=== PATIENT | female | born 1975 | race Caucasian/White ===

== ENCOUNTER 2021-10-05 14:29 | Emergency (ER) | payer OTHER, SELFPAY ==
[2021-10-05] MEDS: LORazepam 1 MG TABLET PO (15:04)
[2021-10-05 15:08] VITALS: BP 153/94; BP 160/92; PULSE 113; PULSE 115; RESP 20; TEMP 36.8; O2SAT 100; O2SAT 97; BMI 22.8
--- NOTE | 2021-10-05 15:16 | ED_ITS ---
HPI - Psych General Chief Complaint: Psychiatric Symptoms <Kiley Fonseca CNP - Last Filed: 10/05/21 21:07> Stated Complaint: CRISIS EVAL, MANIC EPISODE PER EMS <Kiley Fonseca CNP - Last Filed: 10/05/21 21:07> Time Seen by Provider: 10/05/21 14:44 <Kiley Fonseca CNP - Last Filed: 10/05/21 21:07> Source: patient <Kiley Fonseca CNP - Last Filed: 10/05/21 21:07> Mode of arrival: ambulatory <Kiley Fonseca CNP - Last Filed: 10/05/21 21:07> Limitations: no limitations <Kiley Fonseca CNP - Last Filed: 10/05/21 21:07> History of Present Illness HPI Narrative: The patient presents to the emergency department via EMS requesting respite. She reports that she has been manic for the past few days, and knows that she needs help. She states that she has been taking all her medications as prescribed. Expresses auditory hallucinations. Denies suicidal or homicidal ideations. States the last time she had a bad manic episode was in 2007 and she was admitted inpatient and then sent to respite. Denies possibility of . Denies any recent upper respiratory symptoms, sick contacts, or additional complaints. <Kiley Fonseca CNP - Last Filed: 10/05/21 21:07> Related Data Home Medications: Home Medications Medication Instructions Recorded Confirmed amlodipine 5 mg tablet 1 tab PO DAILY 10/05/21 10/05/21 bupropion HCl 300 mg 24 hr tablet, 1 tab PO DAILY 10/05/21 10/05/21 extended release lamotrigine 100 mg tablet 1 tab PO BID 10/05/21 10/05/21 meloxicam 15 mg tablet 1 tab PO DAILY 10/05/21 10/05/21 <Kiley Fonseca CNP - Last Filed: 10/05/21 21:07> Allergies/Adverse Reactions: Allergies Allergy/AdvReac Type Severity Reaction Status Date / Time levonorgestrel-ethinyl AdvReac Mild COLD Unverified 02/15/20 16:11 estradiol SYMPTOMS [From Seasonale] <Kiley Fonseca CNP - Last Filed: 10/05/21 21:07> Review of Systems Review of Systems: Constitutional : No Fever, No Chills ENT/Mouth : No Ear Pain, No Nasal Congestion, No sore throat Eyes: No Eye Pain, No Swelling, No Redness Cardiovascular : No Chest Pain, No SOB Respiratory : No Cough, No Sputum, No Dyspnea Gastrointestinal : No Nausea, No Vomiting, No Diarrhea, No Hematochezia, No Melena Genitourinary : No Dysuria, No Urinary Frequency, No Hematuria Musculoskeletal : No Myalgias Skin : No Skin Lesions, No rash Neuro : No Weakness, No Numbness, No Paresthesias, No Dizziness, No Headache Psych : positive Anxiety, no Depression, no SI/HI, positive ulices Heme/Lymph: No Lymphadenopathy Endocrine : No Polyuria, No Polydipsia <Kiley Fonseca CNP - Last Filed: 10/05/21 21:07> Yes all other systems are reviewed and are negative <Kiley Fonseca CNP - Last Filed: 10/05/21 21:07> [facility] Past Medical History Attestation statement: The following information was validated with the patient. <Kiley Fonseca CNP - Last Filed: 10/05/21 21:07> Source: old records reviewed <Kiley Fonseca CNP - Last Filed: 10/05/21 21:07> Social History Social History: Social History Advance Directives: No Advance Directives Information Provided: No Guardian: No Patient : No <Kiley Fonseca CNP - Last Filed: 10/05/21 21:07> Physical Exam Vital Signs: Vital Signs: Last Vital Signs Temp 98.9 F 10/05/21 23:40 Pulse 98 10/05/21 23:40 Resp 17 10/05/21 23:40 BP 144/98 H 10/05/21 23:40 Pulse Ox 98 10/05/21 23:40 BMI result Body Mass Index 22.8 Vital signs have been reviewed as normal and appeared to be correct. Blood pressure normal.? Heart rate normal.? Respiration rate normal. Temperature normal.? Oxygen saturation normal. <Kiley Fonseca CNP - Last Filed: 10/05/21 21:07> Vital Signs: Last Vital Signs Temp 98.9 F 10/05/21 23:40 Pulse 98 10/05/21 23:40 Resp 17 10/05/21 23:40 BP 144/98 H 10/05/21 23:40 Pulse Ox 98 10/05/21 23:40 BMI result Body Mass Index 22.8 <Criselda Ling NP - Last Filed: 10/06/21 08:32> Appearance: Alert.?Oriented to person, place and time. Manic. Pressured speech. Tangential thinking. Eyes: Pupils equal, round and reactive to light.? ENT: Pharynx normal.?? Neck: Normal inspection.? Neck supple.?? CVS: Heart sounds normal. Normal heart rate and rhythm.? Pulses normal.?? Respiratory: No respiratory distress.? Lung sounds clear to auscultation bilaterally?? Abdomen: Soft and non-tender. Skin: Skin warm and dry.? Normal skin color.? Extremities: No lower extremity edema.? Neuro: Moves all extremities spontaneously. Sensation intact bilaterally. CN II- XII intact. No focal neuro deficits. Ambulates with normal steady gait. <Kiley Fonseca CNP - Last Filed: 10/05/21 21:07> Course Course Course Narrative: Patient is a 46-year-old female with a past medical history of bipolar disorder. She presents emergency department today and acknowledgement of her current episode of ulices over the past few days. She is expressing that her partner of 11 years and his mother are also bipolar but they are not aware of this or willing to add nausea and patient seems to be very anxious and concerned about this. She is overall well-appearing, well-nourished, well-kempt, no apparent distress, hemodynamically stable. She has pressured speech, tangential thinking, she is able to answer questions appropriately with redirection. She is very restless and appears anxious, discussed management at this time with Ativan 1 mg by mouth, and patient is agreeable. She is requesting assistance for respite. Will obtain basic labs including CBC, BMP, urinalysis, drug of abuse screen, ethanol level, COVID-19 testing for medical clearance. Will consult crisis for evaluation. 15 minute safety checks. <Kiley Fonseca CNP - Last Filed: 10/05/21 21:07> Reevaluation(s) Reevaluation #1: COVID-19 testing is negative. Ethanol level negative. Urine drug of abuse screen negative. Urinalysis without sign of infection. Anxiety has improved after receiving lorazepam. Patient medically cleared for evaluation by crisis. <Kiley Fonseca CNP - Last Filed: 10/05/21 21:07> Time: 16:00 <Kiley Fonseca CNP - Last Filed: 10/05/21 21:07> Reevaluation #2: Patient placed in physician observation at this time she will require additional time to be evaluated by crisis. Patient in no apparent distress. Respirations even, regular, and non-labored. No focal neuro deficits. Vital signs stable. Will continue to monitor. <Kiley Fonseca CNP - Last Filed: 10/05/21 21:07> Time: 19:11 <Kiley Fonseca CNP - Last Filed: 10/05/21 21:07> Reevaluation #3: 0830 on 10/06 -care team to re-evaluate patient today. No complaints per nursing overnight. Vital signs reviewed and stable. Will continue physician observation pending disposition. <Criselda Ling NP - Last Filed: 10/06/21 08:32> MDM - Psych Medical Records Attestation: I reviewed the patient's medical records. <Kiley Fonseca CNP - Last Filed: 10/05/21 21:07> Lab Data Attestation: I reviewed the patient's lab results. <Kiley Fonseca CNP - Last Filed: 10/05/21 21:07> Result diagrams: : 10/05/21 16:07 10/05/21 16:07 <Kiley Fonseca CNP - Last Filed: 10/05/21 21:07> Labs: Lab Results 10/05/21 10/05/21 10/05/21 Range/Units 15:56 16:07 16:07 WBC 10.5 (4.8-10.8) X10*3/uL RBC 4.10 L (4.20-5.50) X10*6/uL Hgb 12.4 (12.0-16.0) g/dl Hct 36.4 L (37.0-47.0) % MCV 88.8 (80.0-98.0) fL MCH 30.2 (27.0-33.0) pg MCHC 34.1 (31.0-35.0) g/dl RDW 12.3 (11.0-16.0) % Plt Count 322 (160-400) X10*3/uL MPV 9.2 L (9.4-12.3) fL Immature Gran % (Auto) 0.4 (0.0-0.4) % Neut % (Auto) 86.2 H (45-73) % Lymph % (Auto) 8.7 L (20-40) % [place] % (Auto) 4.4 (2-11) % Eos % (Auto) 0.0 (0-4) % Baso % (Auto) 0.3 (0-2) % Lymph # (Auto) 0.9 L (1.2-4.9) X10*3/uL [place] # (Auto) 0.5 (0.1-1.2) X10*3/uL Eos # (Auto) 0.0 (0.0-0.4) X10*3/uL Baso # (Auto) 0.0 (0.0-0.2) X10*3/uL Abs Immat Gran (auto) 0.04 H (0.00-0.03) X10*3/uL Absolute Neuts (auto) 9.1 H (2.0-8.3) x10*3/uL Absolute Nucleated RBC 0.000 (0.0-0.012) X10*3/uL Nucleated RBC % (auto) 0.0 (0.0-0.2) /100WBC Sodium 140 (135-145) mmol/L Potassium 3.8 (3.3-5.1) mmol/L Chloride 110 H (96-108) mmol/L Carbon Dioxide 21 L (22-29) mmol/L Anion Gap 13 (12-20) BUN 12 (9-16) mg/dL Creatinine 1.02 (0.5-1.4) mg/dL Estim Creat Clear Calc 51.4 Estimated GFR 58 Random Glucose 140 H (60-115) mg/dL Calcium 9.2 (8.4-10.2) mg/dL Urine Color Urine Appearance Urine pH (5.0-8.0) Ur Specific [place] (1.005-1.025) Urine Protein (NEG-TRACE) MG/DL Urine Glucose (UA) (NEG) MG/DL Urine Ketones (NEG) MG/DL Urine Blood (NEG) Urine Nitrite (NEG) Ur Leukocyte Esterase (NEG) Urine Opiates Screen (Not Detect) Urine Fentanyl Screen (Not Detect) Ur Barbiturates Screen (Not Detect) Ur Phencyclidine Scrn (Not Detect) Ur Amphetamines Screen (Not Detect) U Benzodiazepines Scrn (Not Detect) Urine Cocaine Screen (Not Detect) U Marijuana (THC) Screen (Not Detect) Ethyl Alcohol mg/dL COVID-19 (DANAY) Negative (Negative) COVID-19 Clin Com See Note 10/05/21 10/05/21 10/05/21 Range/Units 16:07 17:53 17:53 WBC (4.8-10.8) X10*3/uL RBC (4.20-5.50) X10*6/uL Hgb (12.0-16.0) g/dl Hct (37.0-47.0) % MCV (80.0-98.0) fL MCH (27.0-33.0) pg MCHC (31.0-35.0) g/dl RDW (11.0-16.0) % Plt Count (160-400) X10*3/uL MPV (9.4-12.3) fL Immature Gran % (Auto) (0.0-0.4) % Neut % (Auto) (45-73) % Lymph % (Auto) (20-40) % [place] % (Auto) (2-11) % Eos % (Auto) (0-4) % Baso % (Auto) (0-2) % Lymph # (Auto) (1.2-4.9) X10*3/uL [place] # (Auto) (0.1-1.2) X10*3/uL Eos # (Auto) (0.0-0.4) X10*3/uL Baso # (Auto) (0.0-0.2) X10*3/uL Abs Immat Gran (auto) (0.00-0.03) X10*3/uL Absolute Neuts (auto) (2.0-8.3) x10*3/uL Absolute Nucleated RBC (0.0-0.012) X10*3/uL Nucleated RBC % (auto) (0.0-0.2) /100WBC Sodium (135-145) mmol/L Potassium (3.3-5.1) mmol/L Chloride (96-108) mmol/L Carbon Dioxide (22-29) mmol/L Anion Gap (12-20) BUN (9-16) mg/dL Creatinine (0.5-1.4) mg/dL Estim Creat Clear Calc Estimated GFR Random Glucose (60-115) mg/dL Calcium (8.4-10.2) mg/dL Urine Color YELLOW Urine Appearance CLEAR Urine pH 7.0 (5.0-8.0) Ur Specific [place] 1.020 (1.005-1.025) Urine Protein NEG (NEG-TRACE) MG/DL Urine Glucose (UA) NEG (NEG) MG/DL Urine Ketones 15 (NEG) MG/DL Urine Blood NEG (NEG) Urine Nitrite NEG (NEG) Ur Leukocyte Esterase NEG (NEG) Urine Opiates Screen Not Detected (Not Detect) Urine Fentanyl Screen Not Detected (Not Detect) Ur Barbiturates Screen Not Detected (Not Detect) Ur Phencyclidine Scrn Not Detected (Not Detect) Ur Amphetamines Screen Not Detected (Not Detect) U Benzodiazepines Scrn Not Detected (Not Detect) Urine Cocaine Screen Not Detected (Not Detect) U Marijuana (THC) Screen Not Detected (Not Detect) Ethyl Alcohol < 10 mg/dL COVID-19 (DANAY) (Negative) COVID-19 Clin Com <Kiley Fonseca, CELL TENDER HELPER - Last Filed: 10/05/21 21:07> Lab Results 10/05/21 10/05/21 10/05/21 Range/Units 15:56 16:07 16:07 WBC 10.5 (4.8-10.8) X10*3/uL RBC 4.10 L (4.20-5.50) X10*6/uL Hgb 12.4 (12.0-16.0) g/dl Hct 36.4 L (37.0-47.0) % MCV 88.8 (80.0-98.0) fL MCH 30.2 (27.0-33.0) pg MCHC 34.1 (31.0-35.0) g/dl RDW 12.3 (11.0-16.0) % Plt Count 322 (160-400) X10*3/uL MPV 9.2 L (9.4-12.3) fL Immature Gran % (Auto) 0.4 (0.0-0.4) % Neut % (Auto) 86.2 H (45-73) % Lymph % (Auto) 8.7 L (20-40) % [place] % (Auto) 4.4 (2-11) % Eos % (Auto) 0.0 (0-4) % Baso % (Auto) 0.3 (0-2) % Lymph # (Auto) 0.9 L (1.2-4.9) X10*3/uL [place] # (Auto) 0.5 (0.1-1.2) X10*3/uL Eos # (Auto) 0.0 (0.0-0.4) X10*3/uL Baso # (Auto) 0.0 (0.0-0.2) X10*3/uL Abs Immat Gran (auto) 0.04 H (0.00-0.03) X10*3/uL Absolute Neuts (auto) 9.1 H (2.0-8.3) x10*3/uL Absolute Nucleated RBC 0.000 (0.0-0.012) X10*3/uL Nucleated RBC % (auto) 0.0 (0.0-0.2) /100WBC Sodium 140 (135-145) mmol/L Potassium 3.8 (3.3-5.1) mmol/L Chloride 110 H (96-108) mmol/L Carbon Dioxide 21 L (22-29) mmol/L Anion Gap 13 (12-20) BUN 12 (9-16) mg/dL Creatinine 1.02 (0.5-1.4) mg/dL Estim Creat Clear Calc 51.4 Estimated GFR 58 Random Glucose 140 H (60-115) mg/dL Calcium 9.2 (8.4-10.2) mg/dL Urine Color Urine Appearance Urine pH (5.0-8.0) Ur Specific [place] (1.005-1.025) Urine Protein (NEG-TRACE) MG/DL Urine Glucose (UA) (NEG) MG/DL Urine Ketones (NEG) MG/DL Urine Blood (NEG) Urine Nitrite (NEG) Ur Leukocyte Esterase (NEG) Urine Opiates Screen (Not Detect) Urine Fentanyl Screen (Not Detect) Ur Barbiturates Screen (Not Detect) Ur Phencyclidine Scrn (Not Detect) Ur Amphetamines Screen (Not Detect) U Benzodiazepines Scrn (Not Detect) Urine Cocaine Screen (Not Detect) U Marijuana (THC) Screen (Not Detect) Ethyl Alcohol mg/dL COVID-19 (DANAY) Negative (Negative) COVID-19 Clin Com See Note 10/05/21 10/05/21 10/05/21 Range/Units 16:07 17:53 17:53 WBC (4.8-10.8) X10*3/uL RBC (4.20-5.50) X10*6/uL Hgb (12.0-16.0) g/dl Hct (37.0-47.0) % MCV (80.0-98.0) fL MCH (27.0-33.0) pg MCHC (31.0-35.0) g/dl RDW (11.0-16.0) % Plt Count (160-400) X10*3/uL MPV (9.4-12.3) fL Immature Gran % (Auto) (0.0-0.4) % Neut % (Auto) (45-73) % Lymph % (Auto) (20-40) % [place] % (Auto) (2-11) % Eos % (Auto) (0-4) % Baso % (Auto) (0-2) % Lymph # (Auto) (1.2-4.9) X10*3/uL [place] # (Auto) (0.1-1.2) X10*3/uL Eos # (Auto) (0.0-0.4) X10*3/uL Baso # (Auto) (0.0-0.2) X10*3/uL Abs Immat Gran (auto) (0.00-0.03) X10*3/uL Absolute Neuts (auto) (2.0-8.3) x10*3/uL Absolute Nucleated RBC (0.0-0.012) X10*3/uL Nucleated RBC % (auto) (0.0-0.2) /100WBC Sodium (135-145) mmol/L Potassium (3.3-5.1) mmol/L Chloride (96-108) mmol/L Carbon Dioxide (22-29) mmol/L Anion Gap (12-20) BUN (9-16) mg/dL Creatinine (0.5-1.4) mg/dL Estim Creat Clear Calc Estimated GFR Random Glucose (60-115) mg/dL Calcium (8.4-10.2) mg/dL Urine Color YELLOW Urine Appearance CLEAR Urine pH 7.0 (5.0-8.0) Ur Specific [place] 1.020 (1.005-1.025) Urine Protein NEG (NEG-TRACE) MG/DL Urine Glucose (UA) NEG (NEG) MG/DL Urine Ketones 15 (NEG) MG/DL Urine Blood NEG (NEG) Urine Nitrite NEG (NEG) Ur Leukocyte Esterase NEG (NEG) Urine Opiates Screen Not Detected (Not Detect) Urine Fentanyl Screen Not Detected (Not Detect) Ur Barbiturates Screen Not Detected (Not Detect) Ur Phencyclidine Scrn Not Detected (Not Detect) Ur Amphetamines Screen Not Detected (Not Detect) U Benzodiazepines Scrn Not Detected (Not Detect) Urine Cocaine Screen Not Detected (Not Detect) U Marijuana (THC) Screen Not Detected (Not Detect) Ethyl Alcohol < 10 mg/dL COVID-19 (DANAY) (Negative) COVID-19 Clin Com <Criselda Ling NP - Last Filed: 10/06/21 08:32> Discharge Plan Discharge Clinical Impression: Bipolar disorder <Kiley Fonseca CNP - Last Filed: 10/05/21 21:07> Patient Disposition: Still a Patient <Kiley Fonseca CNP - Last Filed: 10/05/21 21:07> Prescriptions: No Action meloxicam 15 mg tablet 1 tab PO DAILY 0RF amlodipine 5 mg tablet 1 tab PO DAILY 0RF lamotrigine 100 mg tablet 1 tab PO BID 0RF bupropion HCl 300 mg tablet extended release 24 hr 1 tab PO DAILY 0RF <Kiley Fonseca CNP - Last Filed: 10/05/21 21:07>
[2021-10-05 16:12] LABS: MANUAL DIFF FLAG NO
[2021-10-05 16:14] LABS: Basophils Percent Auto 0.3 % (0-2); Hematocrit 36.4 % (37.0-47.0); Hemoglobin 12.4 g/dl (12.0-16.0); Imm Gran Abs Auto 0.04 X10*3/uL (0.00-0.03); Imm Gran Pct Auto 0.4 % (0.0-0.4); Lymphocytes Absolute Auto 0.9 X10*3/uL (1.2-4.9); Lymphocytes Percent Auto 8.7 % (20-40); Mean Corpuscular HGB Conc 34.1 g/dl (31.0-35.0); Mean Corpuscular Hemoglobin 30.2 pg (27.0-33.0); Mean Corpuscular Volume 88.8 fL (80.0-98.0); Mean Platelet Volume 9.2 fL (9.4-12.3); Monocytes Absolute Auto 0.5 X10*3/uL (0.1-1.2); Monocytes Percent Auto 4.4 % (2-11); Neutrophils Absolute Auto 9.1 x10*3/uL (2.0-8.3); Neutrophils Percent Auto 86.2 % (45-73); Platelet Count 322 X10*3/uL (160-400); Red Cell Distribution Width 12.3 % (11.0-16.0); White Blood Count 10.5 X10*3/uL (4.8-10.8)
[2021-10-05 16:26] LABS: Ethanol < 10 mg/dL
[2021-10-05 16:27] LABS: Anion Gap 13 (12-20); Blood Urea Nitrogen 12 mg/dL (9-16); Calcium 9.2 mg/dL (8.4-10.2); Carbon Dioxide 21 mmol/L (22-29); Chloride 110 mmol/L (96-108); Creatinine Clr Calc Pharmacy 51.4; Estimated Glomerular Filt Rate 58; Glucose Random 140 mg/dL (60-115); Potassium 3.8 mmol/L (3.3-5.1); Sodium 140 mmol/L (135-145)
[2021-10-05 16:28] LABS: COVID-19 Test Negative (Negative); IDNOW Serial# 16C4AD1C
[2021-10-05 18:01] LABS: Appearance Urine CLEAR; Color Urine YELLOW; Glucose Urine UA NEG (NEG); Leukocyte Esterase Urine NEG (NEG); Nitrite Urine NEG (NEG); Urine Blood NEG (NEG); Urine Ketones 15 MG/DL (NEG); Urine Protein NEG (NEG-TRACE)
[2021-10-05 18:15] LABS: Amphetamine Screen Urine Not Detected (Not Detect); Barbiturates, Urine Not Detected (Not Detect); Benzodiazepines Screen Urine Not Detected (Not Detect); Cannabinoid Screen Urine Not Detected (Not Detect); Cocaine Screen Urine Not Detected (Not Detect); Fentanyl, urine Not Detected (Not Detect); Opiate Screen Urine Not Detected (Not Detect); Phencyclidine Screen Urine Not Detected (Not Detect)
[2021-10-05 19:24] VITALS: BP 121/81; PULSE 106; RESP 20; TEMP 37.3; O2SAT 98
[2021-10-05] MEDS: lamoTRIgine 100 MG TABLET PO (21:45)
[2021-10-05 23:40] VITALS: BP 144/98; PULSE 98; RESP 17; TEMP 37.2; O2SAT 98
--- NOTE | 2021-10-06 06:21 | PC.NURSE ---
Patient slept most part of the night, up out of room for x 2 for bathroom use and for drinks, behavior calm, coherent, and non concerning at this time, awaiting care team assessment in the morning, patient is seeking partial hospitalization program, VSS, will continue to monitor.
--- NOTE | 2021-10-06 07:04 | PC.NURSE ---
patient appears to remain asleep at present respirations are even and unlabored patient appears in no distress
[2021-10-06] MEDS: amLODIPine Besylate 5 MG TABLET PO (08:39)
[2021-10-06] MEDS: buPROPion HCl XL 300 MG TAB.ER.24H PO (08:39)
[2021-10-06] MEDS: lamoTRIgine 100 MG TABLET PO (08:39)
[2021-10-06 08:40] VITALS: BP 132/93; PULSE 102; RESP 16; TEMP 37.1; O2SAT 97
--- NOTE | 2021-10-06 12:26 | PM.PSYCN ---
History of Present Illness Date of Service: 10/06/2021 Chief Complaint: CRISIS EVAL, MANIC EPISODE PER EMS Reason for Consult: ulices Requesting physician: Criselda Ling Discussed with referring provider: Yes Sources of Information: patient interviewed, chart reviewed and crisis/core team assessment reviewed HPI Narrative: Ms. Noble is a 46 year-old woman with hx of Bipolar disorder type 1. She was brought via EMS to [facility] ED due to increase paranoia and irritability towards family members, decrease need for sleep, hyperverbal, flight of ideas and disorganized. Pt last inpatient psychiatric admission was back in 2007 on m5 for ulices and apparently has been doing fine until few weeks ago. In the ED, utox was negative. In the ED, pt presents with increased insight. She reports she was given ativan which was helpful as she was able to sleep. She reports some paranoia towards family, but states this could have been as I was not sleeping. She notes she had ulices talking too much more irritable, guarded, decreased need for sleep. She denies VH/AH. She reports her PCP has been prescribing combination of lamictal and wellbutrin. she denies SI/HI. She is in agreement to step down to PHP- per partner of 10 years in agreement to take pt home to continue OP psych tx. Past Psychiatric History: Inpatient: 2007 M5 ulices OP: none, PCP currently prescribing for her. Suicide attempts: denies Past med trials: wellbutrin, lamictal. Medical Evaluation Reviewed: Yes Diagnostics Vital Signs (24Hr): Vital Signs - 24 hr 10/05/21 15:08 10/05/21 19:24 10/05/21 23:40 Temperature 98.3 F 99.1 F 98.9 F Pulse Rate 113 H 106 H 98 Respiratory Rate 20 20 17 Blood Pressure 153/94 H 121/81 144/98 H Pulse Oximetry 97 98 98 10/06/21 08:40 Temperature 98.7 F Pulse Rate 102 H Respiratory Rate 16 Blood Pressure 132/93 H Pulse Oximetry 97 BMI result Body Mass Index 22.8 Labs Results: 10/05/21 16:07 10/05/21 16:07 Labs: Laboratory Results - last 48 hr 10/05/21 10/05/21 10/05/21 15:56 16:07 16:07 WBC 10.5 RBC 4.10 L Hgb 12.4 Hct 36.4 L MCV 88.8 MCH 30.2 MCHC 34.1 RDW 12.3 Plt Count 322 MPV 9.2 L Immature Gran % (Auto) 0.4 Neut % (Auto) 86.2 H Lymph % (Auto) 8.7 L [place] % (Auto) 4.4 Eos % (Auto) 0.0 Baso % (Auto) 0.3 Lymph # (Auto) 0.9 L [place] # (Auto) 0.5 Eos # (Auto) 0.0 Baso # (Auto) 0.0 Abs Immat Gran (auto) 0.04 H Absolute Neuts (auto) 9.1 H Absolute Nucleated RBC 0.000 Nucleated RBC % (auto) 0.0 Sodium 140 Potassium 3.8 Chloride 110 H Carbon Dioxide 21 L Anion Gap 13 BUN 12 Creatinine 1.02 Estim Creat Clear Calc 51.4 Estimated GFR 58 Random Glucose 140 H Calcium 9.2 Urine Color Urine Appearance Urine pH Ur Specific [place] Urine Protein Urine Glucose (UA) Urine Ketones Urine Blood Urine Nitrite Ur Leukocyte Esterase Urine Opiates Screen Urine Fentanyl Screen Ur Barbiturates Screen Ur Phencyclidine Scrn Ur Amphetamines Screen U Benzodiazepines Scrn Urine Cocaine Screen U Marijuana (THC) Screen Ethyl Alcohol COVID-19 (DANAY) Negative COVID-19 Clin Com See Note 10/05/21 10/05/21 10/05/21 16:07 17:53 17:53 WBC RBC Hgb Hct MCV MCH MCHC RDW Plt Count MPV Immature Gran % (Auto) Neut % (Auto) Lymph % (Auto) [place] % (Auto) Eos % (Auto) Baso % (Auto) Lymph # (Auto) [place] # (Auto) Eos # (Auto) Baso # (Auto) Abs Immat Gran (auto) Absolute Neuts (auto) Absolute Nucleated RBC Nucleated RBC % (auto) Sodium Potassium Chloride Carbon Dioxide Anion Gap BUN Creatinine Estim Creat Clear Calc Estimated GFR Random Glucose Calcium Urine Color YELLOW Urine Appearance CLEAR Urine pH 7.0 Ur Specific [place] 1.020 Urine Protein NEG Urine Glucose (UA) NEG Urine Ketones 15 Urine Blood NEG Urine Nitrite NEG Ur Leukocyte Esterase NEG Urine Opiates Screen Not Detected Urine Fentanyl Screen Not Detected Ur Barbiturates Screen Not Detected Ur Phencyclidine Scrn Not Detected Ur Amphetamines Screen Not Detected U Benzodiazepines Scrn Not Detected Urine Cocaine Screen Not Detected U Marijuana (THC) Screen Not Detected Ethyl Alcohol < 10 COVID-19 (DANAY) COVID-19 Clin Com Mental Status Exam Mental Status Exam Narrative: Appearance: wearing hospital gown, fair hygiene in NAD Behavior:cooperative psychomotor: no agitation or retardation noted Speech:clear, less pressured, not hyperverbal, spontaneous Thought process:tangential at times but no loose associations. Thought content:some paranoia towards family, seeking psych tx. Mood: better Affect: congruent, non overly labile. SI:none HI:none VH/AH:none Delusions:paranoia towards family, but to lesser extend Insight/judgment:improving x 2. Memory/cog: alert, oriented x 3. grossly intact to conversational testing. Medications Medications Current Medications Amlodipine Besylate (Amlodipine Besylate 5 Mg Tablet) 5 mg PO DAILY [facility]; Protocol Last Admin: 10/06/21 08:39 Dose: 5 mg Documented by: Lamotrigine (Lamotrigine 100 Mg Tablet) 100 mg PO BID [facility] Last Admin: 10/06/21 08:39 Dose: 100 mg Documented by: Naproxen (Naproxen 500 Mg Tablet) 500 mg PO BID [facility] Last Admin: 10/06/21 07:05 Dose: Not Given Documented by: Pharmacy Consult (Consult Rx Perform Med Rec) 1 each MISCELLANE ONCE PRN PRN Reason: Consult order Risperidone (Risperidone 1 Mg Tablet) 1 mg PO BID [facility] Allergies Allergies Allergy/AdvReac Type Severity Reaction Status Date / Time levonorgestrel-ethinyl AdvReac Mild COLD Unverified 02/15/20 16:11 estradiol SYMPTOMS [From Seasonale] Assessment & Plan Assessment & Plan (1) Bipolar 1 disorder, manic, moderate: Status: Acute Code(s): F31.12 - Bipolar disorder, current episode manic without psychotic features, moderate Plan Ms. Noble is a 46 year-old woman with hx of Bipolar disorder who has been stable for several years. She was brought via EMS to [facility] ED due to increase paranoia, decrease need for sleep, hyperverbal, pressured speech with flight of ideas. Pt given ativan last night with good effect. Today, pt presents calmer, increase insight into psychiatric symptoms and need for intensive psychiatric tx. Her PCP has been prescribing combinatio of wellbutrin and lamictal. Given current presentation of ulices-hypomania, recommend pt to stop wellbutrin as it will worsen psychosis (paranoia) and ulices. Pt in agreement to start risperidone for mood/paranoid, continue lamictal. She also agrees to start PHP in few days. Will give rx of ativan prn daily for sleep/agitation. Partner in agreement with plan and denies safety concerns at time of discharge. PLAN 1. Pt appropriate for PHP given no imminent safety concerns in terms of suicidality/homicidality. Also, pt does not present gravely disable to need higher level of care such as psychiatric inpatient unit. Pt agrees to follow up with PHP. Partner of 10 years agrees with plan and denies safety concerns at time of discharge from ED. 2. d/c wellbutrin worsens psychosis/ulices 3. start risperidone 1mg po BID 4. ativan 1mg po daily prn for sleep/agitation. I spent ___25___ minutes with the patient and/or on the patient floor today, greater than?50% of which was spent counseling/coordinating care.
[2021-10-06] MEDS: risperiDONE 1 MG TABLET PO (12:32)
== END 2021-10-06 12:40 | disposition home or self-care (01) ==
PROVIDERS: Nurse Practitioner Family; Emergency Provider Emergency Medicine; PCP Internal Medicine
DX: F33.1 Major depressive disorder, recurrent, moderate (principal); F41.1 Generalized anxiety disorder; R44.0 Auditory hallucinations; F43.0 Acute stress reaction; Z20.822 Contact with and (suspected) exposure to COVID-19; Z79.899 Other long term (current) drug therapy
CPT/HCPCS: 80048; 80307; 81003; 82077; 85025; 87635; 99284

== ENCOUNTER 2021-10-31 12:15 | Outpatient (RCR) | payer OTHER, SELFPAY ==
[2021-10-20 11:20] VITALS: BMI 25.2
--- NOTE | 2021-10-20 11:34 | PC.ADMIT ---
Patient is a 46 year old female who has a diagnosis of Bipolar disorder who reportedly went to the ER via ambulance after her partner called d/t patient's mood liability. Patient reportedly had not slept in 3 days and reported family stressors. Patient also was experiencing mild paranoia and delusions. Patient spent the night in the ER and was discharged the next day with a referral to [facility] level of care. Patient was taken off Wellbutrin. Patient reports no delusions or paranoid thoughts at present. Reports some depression and anxiety sxs. Patient is alert and oriented x4. Presents with depressed mood and affect. No delusions or paranoid noted. Denied SI. Denied history of SA. Will email patient a copy of her safety plan. Medications reconciled with patient and patient's pharmacy. She reports taking medications as prescribed.
--- NOTE | 2021-10-20 15:56 | PC.NURSE ---
Case opened in treatment team.
--- NOTE | 2021-10-20 16:33 | HO.PS.ADMBH ---
[facility] Date of Service: 10/20/21 Chief Complaint: bipolar Sources of Information: patient interviewed, chart reviewed and crisis/core team assessment reviewed HPI Guardianship: No Medical Problems Affecting Mental Status: No Narrative: Patient is a 46-year-old female with history of bipolar disorder type 1, referred to [facility] through CARE team after she was evaluated in [facility] ED. she had presented to the ED earlier this month, with symptoms of ulices, including elevated mood, behavioral agitation, mild paranoia, and delusions. She had barely slept for 3 days. She did remain at the ED overnight to get some sleep, and was re-evaluated in the morning. She was seen by Psychiatry provider while in ED, with several medication changes. These included DC Wellbutrin, continuen lamictal, added risperidone 1 mg b.i.d., lorazepam 1 mg daily for sleep/agitation. Patient reports she 1st experienced any symptoms of a mood disorder in 2007, when she began to experience symptoms of depression and anxiety. This progressed into ulices, and she was hospitalized. She states that she has been stable for quite some time, until recently. She attributes much of this to increased stress related to her mother's diagnosis of Alzheimer's. She also has a brother who is struggling with substance use disorder and is in recovery, he has recently moved back in with her mother and stepfather. Patient reports she does not get along with her stepfather. She states that current family situation has been stressful and overwhelming. She reports she continues to have symptoms of anxiety and depression. She has been taking medications as prescribed since her most recent ED presentation on 10/05, with some positive effect. She does not currently have any outpatient providers, and her medications have been prescribed by her primary care provider. She is interested in working with a psychiatric provider and therapist again. She denies any suicidal ideation, homicidal ideation, or thoughts of self injury in any way. She has found this PHP to be helpful in the past, and is looking forward to participating in the groups. Past Psychiatric History: Inpatient: 2007 M5 ulices PHP: [facility] in 2008, [facility] in past. OP: none, PCP currently prescribing for her. Suicide attempts: denies Past med trials: wellbutrin, lamictal Medical Evaluation Reviewed: Yes [facility] Medical History Eczema HTN (hypertension) Family History: IPLOC 2008 PHP 2X No current providers Social History: Raised in [place] by mother, has 1 brother. Has a stepfather. State back in 3rd grade. Does not recall history of IEP/504. Graduated high school. 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 Stopped working when 1st began to experience symptoms of depression anxiety in 2007. Lives with partner of 11 years. Substance History: denies Trauma History: Victim, emotional Diagnostics Vital Signs (24Hr): BMI result Body Mass Index 25.2 Meds/Allergies Meds Home Medications Medication Instructions Recorded Confirmed Type amlodipine 5 mg tablet 1 tab PO DAILY 10/05/21 10/20/21 History lamotrigine 100 mg tablet 1 tab PO BID 10/05/21 10/20/21 History Allergies Allergies Allergy/AdvReac Type Severity Reaction Status Date / Time levonorgestrel-ethinyl AdvReac Mild COLD Unverified 02/15/20 16:11 estradiol SYMPTOMS [From Seasonale] Mental Status Exam Mental Status Exam Narrative: Well-developed, well-nourished female, in NAD. Well groomed, wearing street clothes. Behavior was calm, cooperative, asking appropriate questions. Psychomotor/musculoskeletal/gait: Did not observe any ambulation, appear to be sitting upright during interview. Speech and language were regular rate and rhythm, full Prosody, normal volume. Mood described as ?I am anxious today, but only because I have started program today ?. Affect mood congruent, brightens easily. Thought process linear, goal directed. No evidence of loosening of associations. Thought content focused on past treatment, current treatment, goals of care, medications. Denies SI/HI/SIB. Perception/experiences: No hallucinations, paranoia, delusions noted. Alert and oriented x4. Memory intact. Attention and concentration, able to follow conversation without difficulty. Abstract reasoning was grossly intact. Fund of knowledge was adequate. Insight and judgment: Patient recognizes that medications are required in order to help achieve mood stability. She is willing to work with medication adjustment/titration as needed. Wishes to continue working with an outpatient therapist and psychiatric provider going forward. Telehealth Telehealth Location of provider rendering services: practice address Location of patient: address on file Patient Identification confirmed using: Name, : Yes Telehealth method: video Patient verbally consented to treatment: Yes Patient verbally consented to billing insurance company: Yes Patient informed of any privacy concerns related to visit: Yes Minutes spent on Phone/Video with Pt.: 45 Assessment & Plan Assessment & Plan (1) Bipolar 1 disorder, manic, moderate: Status: Acute Code(s): F31.12 - Bipolar disorder, current episode manic without psychotic features, moderate Assessment and Plan: Patient carries diagnosis of bipolar 1 disorder. Had recently been manic earlier this month. Has had medication adjustments, including stopping Wellbutrin, adding risperidone and lorazepam. Patient reports that these medication changes have been helpful, and she feels her mood continues to stabilize. She states that she does continue with some stress, anxiety and depression, related to mostly her family situation at this time. She describes a healthy relationship with her significant other, and states that he is extremely supportive. She reports her sleep has improved, and that she is working to reestablish her schedule of stress reducing activities, such as exercise, following a regular sleep and eating pattern, and adhering to her medications. She denies any thought of harm to self or others at this time, no safety concern. We discussed her medications in detail. This discussion including indications of each medication, risks both adverse affects serious and common, benefits, and alternatives of treatment. She would like to hold off on any medication changes at this time, as she feels her current meds are continuing to help improve and stabilize her mood. She has only recently started new medications 2 weeks ago. We discussed PHP program, groups. She is looking forward to participating in group therapy. She would also like to find a support group. (2) History of post traumatic stress disorder: Status: Acute Code(s): Z86.59 - Personal history of other mental and behavioral disorders Plan 1. Continue with current [facility] plan of care. 2. Continue with current medications as prescribed. Refill of risperidone sent to pharmacy. 3. Follow-up as per protocol. Patient educated on: diagnosis, medication risk/benefits and therapeutic strategies Informed Consent: understands Reason for continued partial hosp. stay Substantial Risk for: harm to self, inability to function and med/psych decompensation Certification I certify that partial hospital treatment is medically necessary due to the symptoms and problems resulting from the patient's mental illness and the failure to treat the patient at the partial hospital level of care would likely result in the patient requiring inpatient psychiatric care which could not be prevented at a less intensive level of care.
--- NOTE | 2021-10-21 15:44 | PC.NURSE ---
I called and spoke with pt. Reviewed treatment plan and discussed aftercare. pt is interested in seeing one of 2 therapist that she saw in the past, many years ago (1) Josiane Roblero, [facility], or 2) Samantha Maradiaga [facility]). She said Josiane Roblero used to work at [facility]. I told her I'd check to see if Josiane Roblero still works there and call her back. I called [facility] and they said she no longer works there. I called [facility] and was told the same. It seems both therapists are in private practice. I called the number I found for Samantha Maradiaga, and received a busy signal a few times, then a recording indicating the phone is out of service.
--- NOTE | 2021-10-21 16:03 | PC.NURSE ---
After researching the therapists she is interested in, I called back and spoke to pt. I told her that to the best of my knowledge, both therapists are not working at an agency, and are working in private practice. Pt said she is not interested in traveling to [facility] to see Josiane Roblero, and I told her I was unable to find a working phone number online for Felicia Maradiaga. We discussed the possibility of [facility] options, and the differences between Community mental health and private practice. Pt said she'd like to think about it and talk at a later date.
--- NOTE | 2021-10-23 16:48 | PC.NURSE ---
Case opened in treatment team.
--- NOTE | 2021-10-28 12:51 | PC.NURSE ---
Patient reports she has a PCP appointment today 10/28/21 at 4:30 and is all set with PAP test appointment as a result.
--- NOTE | 2021-10-29 15:50 | PC.NURSE ---
I called and spoke to pt re: aftercare. After revisiting and discussing options, she said she wants to try calling Josiane Hernandez in [place], and if this doesn't garcia out, she would like a referral to [facility] in [place]. She said she might need more time to think on this, and might want me to hold of on making this referral until her last day.
--- NOTE | 2021-10-31 13:56 | PC.NURSE ---
Patient discharged from the program today. Patient stated she is feeling, ok regarding discharge and, a little sad however patient stated she is looking forward to getting back to her normal routine. Patient denied SI or thoughts to harm self. Patient denied any safety issues. Reviewed patient medications with patient. Patient reports she is taking her medications as prescribed.
--- NOTE | 2021-10-31 16:30 | P.PNPSP_ITS ---
Subjective Subjective Date of Service: 10/31/21 Reason For Visit: bipolar Medical Problems Affecting Mental Status: No Interim History: Describes mood as ?okay ?. Met on phone due to patient having difficulty logging into virtual appointment. Reports current medications working, her primary care provider has agreed to prescribe until she has an outpatient psychiatric provider. States that overall she feels improved, program has been helpful. Medication Compliance: Yes Side effects from medications: No Attending Groups: Yes Review of Systems Acute medical concerns: No Medical Review of Systems: unchanged Review of Systems Review of Systems Yes all other systems are reviewed and are negative Constitutional: Reports no additional constitutional complaints Mental Status Exam Mental Status Exam Narrative: NAD. Well groomed, wearing street clothes. Behavior was calm, cooperative. Psychomotor/musculoskeletal/gait: Did not observe any ambulation, appear to be sitting upright during interview. Speech and language were regular rate and rhythm, full Prosody, normal volume. Mood described as okay Affect mood congruent (via phone) Thought process linear, goal directed. No evidence of loosening of associations. Thought content focused on past treatment, current treatment, goals of care, medications. Denies SI/HI/SIB. Perception/experiences: No hallucinations, paranoia, delusions noted. Alert and oriented x4. Memory intact. Attention and concentration appropriate. Abstract reasoning was grossly intact. Fund of knowledge was adequate. Insight and judgment: intact. Diagnostics Vital Signs (24Hr): BMI result Body Mass Index 25.2 Assessment & Plan Assessment & Plan (1) Bipolar 1 disorder, manic, moderate: Status: Acute Code(s): F31.12 - Bipolar disorder, current episode manic without psychotic features, moderate Assessment and Plan: Met with patient on phone due to difficulty logging in to virtual meeting. Mood was stable, reports feeling improved. States that she has reached out to her primary care provider who will fill psychiatric medications until she secures appointment with psychiatric provider. Express difficulty at home dealing with her mother, due to mother's Alzheimer's disease. She states that she wants to be able to care for her parents appropriately. She states that the program has been immensely helpful, and that she feels much improvement since starting program. (2) History of post traumatic stress disorder: Status: Acute Code(s): Z86.59 - Personal history of other mental and behavioral disorders Plan Patient presented with stable mood an affect. Feels ready for discharge from program today. 1. Discharge from [facility] today. 2. Patient to follow-up with outpatient providers going forward. 3. No medication changes at this time. Patient does not require any refills at this time. Patient educated on: diagnosis, medication risk/benefits and therapeutic strategies Informed Consent: understands Reason for contiued partial hosp. stay Substantial Risk for: stable for discharge Certification I certify that partial hospital treatment is medically necessary due to the symptoms and problems resulting from the patient's mental illness and the failure to treat the patient at the partial hospital level of care would likely result in the patient requiring inpatient psychiatric care which could not be prevented at a less intensive level of care. I spent minutes with the patient and/or on the patient floor today, greater than?50% of which was spent counseling/coordinating care. Discharge Plan Discharge Attending provider: Robe Mckinley Additional Instructions: Telehealth appointment for intake for med management with Clemencia Kolb APRN from [place] for [employer] [facility]) on 11/19/21 at 9am. Medications: New risperidone 1 mg tablet 1 mg PO BID 30 Days Qty: 60 0RF Discontinued risperidone 1 mg Tablet 1 mg PO BID Qty: 30 0RF No Action amlodipine 5 mg tablet 1 tab PO DAILY 0RF lamotrigine 100 mg tablet 1 tab PO BID 0RF lorazepam 1 mg Tablet 1 mg PO DAILY PRN (Reason: anxiety/sleep) Qty: 15 0RF Stand Alone Forms: Patient Portal Discharge page
== END 2021-10-31 23:59 | disposition home or self-care (01) ==
LOC: HO.PHPA 12:15
PROVIDERS: Visit Provider Psychiatry & Neurology Psychiatry
DX: F31.12 Bipolar disorder, current episode manic without psychotic features, moderate (principal); Z86.59 Personal history of other mental and behavioral disorders; Z79.899 Other long term (current) drug therapy
CPT/HCPCS: 90791; 90853

== ENCOUNTER 2023-04-21 14:32 | Emergency (ER) | payer OTHER, SELFPAY ==
--- NOTE | 2023-04-21 14:37 | ED.PSYCH ---
HPI - Psych General Chief Complaint: Psychiatric Symptoms Stated Complaint: Manic Bipolar Time Seen by Provider: 04/21/23 15:06 Source: patient and family Mode of arrival: ambulatory Limitations: no limitations History of Present Illness HPI Narrative: 46-year-old female with history of bipolar disorder type 1, patient stated that I feel like I am manic, mood disturbance and behavior agitation with mild paranoia and delusions, patient out of her medication for many months patient did not take her lorazepam for 5 days. Declined SI or HI. No history of drug abuse, declined chance of being . Related Data Home Medications Medication Instructions Recorded Confirmed amlodipine 5 mg tablet 1 tab PO DAILY 10/05/21 10/20/21 lamotrigine 100 mg tablet 1 tab PO BID 10/05/21 10/20/21 Previous Rx's Medication Instructions Recorded lorazepam 1 mg tablet 1 mg PO DAILY PRN anxiety/sleep 10/06/21 #15 tabs risperidone 1 mg tablet 1 mg PO BID 30 days #60 tabs 10/20/21 Allergies Allergy/AdvReac Type Severity Reaction Status Date / Time levonorgestrel-ethinyl AdvReac Mild COLD Verified 04/21/23 14:35 estradiol SYMPTOMS [From Seasonale] Review of Systems Review of Systems: All other systems are reviewed and are negative Constitutional: Reports as per HPI and Reports no additional constitutional complaints Eyes: Reports as per HPI and Reports no additional eye complaints Reports system reviewed and no additional complaints, except as documented Cardiovascular: Reports as per HPI and Reports no additional cardiovascular complaints Respiratory: Reports as per HPI and Reports no additional respiratory complaints Gastrointestinal: Reports as per HPI and Reports no additional gastrointestinal complaints Genitourinary: Reports no additional female genitourinary complaints Musculoskeletal: Reports no additional musculoskeletal complaints Skin/Breast: Reports system reviewed and no additional complaints, except as docu Psychiatric: Reports no additional psychiatric complaints Endocrine: Reports no additional endocrine complaints Hematologic/Lymphatic: Reports no additional hematologic/lymphatic complaints Allergic/Immunologic: Reports no additional allergic/immunologic complaints Reports system reviewed and no additional complaints, except as documented and Reports Abnormal speech present [facility] Past Medical History Medical History Eczema HTN (hypertension) Social History Household Members: Significant Other Patient Tobacco Use Status: Never used Tobacco Physical Exam Vital Signs: Vital Signs: Last Vital Signs Temp 98.5 F 04/21/23 14:38 Pulse 123 H 04/21/23 14:38 Resp 18 04/21/23 14:38 BP 166/112 H 04/21/23 14:38 Pulse Ox 96 04/21/23 14:38 O2 Del Method Room Air 04/21/23 14:38 BMI result Body Mass Index 24.9 Vital signs have been reviewed and appear to be correct. Blood pressure elevated. Heart rate Elevated. Respiratory rate normal. Temperature normal. Oxygen saturation normal. Appearance: Alert. Oriented X3. No acute distress. Head: Normal external exam. Normocephalic. Atraumatic. No Barnhart signs noted. No raccoon eyes noted Eyes: PERRLA. EOMI. Conjunctiva and sclera normal. Eyelids normal. ENT: TM's Normal. Pharynx normal. Uvula midline. Moist mucous membranes. No trismus noted. No drooling noted. No muffled voice noted. Neck: Normal inspection. Neck supple. FROM. No adenopathy. Thyroid Normal. No meningeal signs. No neck mass noted. CVS: Normal heart rate and rhythm. Heart sound normal. No murmurs noted. Pulses normal throughout. Respiratory: No respiratory distress. Painless inspiration. Breath sounds normal. No wheezes/rales/rhonchi noted. Chest nontender. No accessory muscle usage noted or decreased air movement noted. Abdomen: Soft and nontender. Bowel sounds normal in all 4 quadrants. No distention noted. No organomegaly noted. No visible injury noted. Back: No CVA tenderness. Full range of motion noted. Skin: Skin warm and dry. Normal skin color. Normal skin turgor. No rashes/lesions/lacerations noted. Extremities: No lower extremity edema. Extremities exhibit normal range of motion. Extremities nontender. Neuro: Oriented X 3. Cranial nerve exam: II-XII are grossly intact No motor deficit. No sensory deficit. Reflexes normal. Patient Orientation: Person, Place, Time and Situation, okay hygiene and grooming. Fair eye contact, attentive, no tics or tremors. Level of Consciousness: Awake, Appropriate and Alert Patient Behavior: Appropriate, Guarded, Cooperative and Anxious Mood Description: Constricted, Blunted and Apprehensive Affect Description: Constricted, Blunted and Apprehensive Patient Cognition Impaired: No Ability to Follow Directions: Excellent Speech Pattern: pressured speech can be interrupted, spontaneous with regular rate and rhythm, normal volume and prosody. No dysarthria. Memory Description: Intact, Immediate Intact and Short Term Intact Hallucinations: None Delusions: Present Thought Process: Intact Thought Content: positive for Intact, positive for Logical, denies Suicidal Ideation and denies Homicidal Ideation. Depressive Symptoms: present (Hopeless, helpless, do not sleep ). Judgement and Insight: Limited but adequate. Course Course Course Narrative: This is a rapid medical exam. Deferred additional HPI, ROS, PE to primary provider. 48 yo female with history of PTSD, bipolar disorder here with manic episode, off scheduled lorazepam >5 days. No SI/HI. No physical complaints. will obtain labs, [facility] Will move to pod VSS Reevaluation(s) Reevaluation #1: will order medical clearance labs and care team evaluation. start the patient on physician observation Time: 15:31 Medical Decision Making Differential Diagnosis Differential Diagnoses: The differential diagnosis associated with the presentation includes ( Severe anemia, electrolyte abnormality, UTI, , acute psychosis.) Admission/Observation Consideration of admission/observation: Escalation of care including admission/observation considered Discharge Plan Discharge Clinical Impression: Bipolar 1 disorder, manic, moderate, Chronic schizophrenia Patient Disposition: Still a Patient Prescriptions: No Action amlodipine 5 mg tablet 1 tab PO DAILY lamotrigine 100 mg tablet 1 tab PO BID lorazepam 1 mg Tablet 1 mg PO DAILY PRN (Reason: anxiety/sleep) Qty: 15 0RF risperidone 1 mg tablet 1 mg PO BID 30 Days Qty: 60 0RF
[2023-04-21 14:38] VITALS: BP 166/112; PULSE 123; RESP 18; TEMP 36.9; O2SAT 96; BMI 24.9
[2023-04-21 15:36] LABS: MANUAL DIFF FLAG NO
[2023-04-21] MEDS: LORazepam 1 MG TABLET PO (15:37)
[2023-04-21 15:38] LABS: Basophils Percent Auto 0.2 % (0-2); Eosinophils Absolute Auto 0.1 X10*3/uL (0.0-0.4); Eosinophils Percent Auto 0.6 % (0-4); Hemoglobin 14.5 g/dl (12.0-16.0); Imm Gran Abs Auto 0.01 X10*3/uL (0.00-0.03); Imm Gran Pct Auto 0.1 % (0.0-0.4); Lymphocytes Absolute Auto 1.1 X10*3/uL (1.2-4.9); Lymphocytes Percent Auto 13.1 % (20-40); Mean Corpuscular HGB Conc 34.5 g/dl (31.0-35.0); Mean Corpuscular Hemoglobin 30.1 pg (27.0-33.0); Mean Corpuscular Volume 87.3 fL (80.0-98.0); Mean Platelet Volume 8.7 fL (9.4-12.3); Monocytes Absolute Auto 0.4 X10*3/uL (0.1-1.2); Monocytes Percent Auto 4.8 % (2-11); Neutrophils Absolute Auto 6.7 x10*3/uL (2.0-8.3); Neutrophils Percent Auto 81.2 % (45-73); Platelet Count 427 X10*3/uL (160-400); Red Blood Count 4.81 X10*6/uL (4.20-5.50); Red Cell Distribution Width 12.1 % (11.0-16.0); White Blood Count 8.3 X10*3/uL (4.8-10.8)
[2023-04-21 15:47] LABS: Amphetamine Screen Urine Not Detected (Not Detect); Barbiturates, Urine Not Detected (Not Detect); Benzodiazepines Screen Urine Not Detected (Not Detect); Cannabinoid Screen Urine Not Detected (Not Detect); Cocaine Screen Urine Not Detected (Not Detect); Fentanyl, urine Not Detected (Not Detect); Opiate Screen Urine Not Detected (Not Detect); Phencyclidine Screen Urine Not Detected (Not Detect)
[2023-04-21 15:55] LABS: Alanine Aminotransferase 15 U/L (0-31); Albumin Level 4.8 g/dL (3.5-5.0); Alkaline Phosphatase 63 U/L (39-117); Anion Gap 11 (12-20); Aspartate Amino Transferase 18 U/L (5-31); Bilirubin Direct 0.2 mg/dL (0.0-0.5); Bilirubin Total 0.6 mg/dL (0.0-1.0); Blood Urea Nitrogen 10 mg/dL (9-16); Calcium 9.7 mg/dL (8.4-10.2); Carbon Dioxide 26 mmol/L (22-29); Chloride 106 mmol/L (96-108); Estimated Glomerular Filt Rate 55; Glucose Random 114 mg/dL (60-115); Potassium 3.8 mmol/L (3.3-5.1); Sodium 139 mmol/L (135-145); Total Protein 7.7 g/dL (6.5-8.0)
[2023-04-21 15:56] LABS: Appearance Urine Turbid; Color Urine Dark Yellow; Glucose Urine UA Negative (Negative); Leukocyte Esterase Urine Trace (Negative); Nitrite Urine Negative (Negative); PH 5.5 (5.0-9.0); Specific Gravity - Urine 1.025 (1.005-1.025); UMIC TRIGGER UACC YES; Urine Blood Large (3+) (Negative); Urine Ketones 15 mg/dL (Negative); Urine Protein 100 (2+) mg/dL (Neg-Trace)
--- NOTE | 2023-04-21 16:42 | PC.NURSE ---
[facility] phone number [phone]
[2023-04-21 17:16] LABS: Bacteria Urine 4+ (None Seen); Squamous Epithelial Cell Urine >20 /HPF (0-2); UACC Culture Trigger YES
[2023-04-21 17:44] LABS: Ethanol < 10 mg/dL
[2023-04-21 18:08] LABS: UPreg QC Valid YES; Urine Pregnancy NEGATIVE (NEGATIVE)
[2023-04-21 20:02] VITALS: BP 134/91; PULSE 100; RESP 20; TEMP 36.4; O2SAT 97
[2023-04-21] MEDS: amLODIPine Besylate 5 MG TABLET PO (20:33)
[2023-04-21] MEDS: LORazepam 0.5 MG TABLET PO (20:33)
[2023-04-21] MEDS: lamoTRIgine 100 MG TABLET PO (20:33)
--- NOTE | 2023-04-22 06:29 | PC.NURSE ---
Patient slept through the night, no distress observed/reported, patient was assessed by care team, patient engaged well, disposition pending psych consult, psych consult ordered for med review, medication complaint, behavior non concerning, no ulices observed/reported, coherent, labs completed/resulted, will continue to monitor.
[2023-04-22 06:41] VITALS: BP 115/91; PULSE 85; RESP 16; TEMP 36.4; O2SAT 99
[2023-04-22 07:15] VITALS: BP 118/88; PULSE 116; RESP 16; TEMP 36.5; O2SAT 97
[2023-04-22] MEDS: LORazepam 0.5 MG TABLET PO (07:15)
[2023-04-22] MEDS: amLODIPine Besylate 5 MG TABLET PO (07:15)
[2023-04-22] MEDS: lamoTRIgine 100 MG TABLET PO (07:15)
[2023-04-22] MEDS: buPROPion HCl XL 300 MG TAB.ER.24H PO (07:15)
--- NOTE | 2023-04-22 07:51 | PC.NURSE ---
awake, watching tv in room. respirations even and unlabored. medicated per the MAR. awaiting psych consult, denies si/hi.
--- NOTE | 2023-04-22 09:28 | PC.NURSE ---
continues to rest quietly in room, offering no complaints at this time
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
--- NOTE | 2023-04-22 13:51 | PC.NURSE ---
psych meeting with patient at this time, patient states she wants to go home
--- NOTE | 2023-04-22 14:21 | PC.NURSE ---
plan for patient to be discharged with follow up care. will call boyfriend for ride.
[2023-04-22 15:06] VITALS: BP 128/87; PULSE 98; RESP 16; TEMP 36.2; O2SAT 99
== END 2023-04-22 15:25 | disposition home or self-care (01) ==
PROVIDERS: Emergency Provider Emergency Medicine; PCP Internal Medicine
DX: F30.12 Manic episode without psychotic symptoms, moderate (principal); F20.9 Schizophrenia, unspecified; Z79.899 Other long term (current) drug therapy
CPT/HCPCS: 36415; 80048; 80076; 80307; 81001; 81003; 81025; 85025; 87086; 99284; S9485

== ENCOUNTER → 2023-04-21 15:52 | Outpatient (BNV) | payer OTHER, SELFPAY | PROVIDERS: Emergency Provider Emergency Medicine; PCP Internal Medicine; Visit Provider Psychiatry & Neurology Psychiatry | DX: F31.12 Bipolar disorder, current episode manic without psychotic features, moderate (principal) | CPT/HCPCS: 99499 ==

== ENCOUNTER 2023-04-26 13:06 | Outpatient (REF) | payer OTHER, SELFPAY ==
[2023-04-26 14:07] LABS: Lithium 0.28 mmol/L (0.60-1.20)
[2023-04-26 14:24] LABS: Anion Gap 10 (12-20); Blood Urea Nitrogen 13 mg/dL (9-16); Calcium 9.7 mg/dL (8.4-10.2); Carbon Dioxide 29 mmol/L (22-29); Chloride 104 mmol/L (96-108); Estimated Glomerular Filt Rate 52; Glucose Random 88 mg/dL (60-115); Potassium 4.4 mmol/L (3.3-5.1); Sodium 139 mmol/L (135-145)
[2023-04-26 14:34] LABS: TSH reflex Free T4 2.84 uIU/mL (0.32-4.0)
== END 2023-04-26 13:07 | disposition home or self-care (01) ==
LOC: HO.LAB 13:06
PROVIDERS: Visit Provider Psychiatry & Neurology Psychiatry
DX: F31.12 Bipolar disorder, current episode manic without psychotic features, moderate (principal); Z79.899 Other long term (current) drug therapy
CPT/HCPCS: 36415; 80048; 80178; 84443

== ENCOUNTER 2024-12-12 14:24 | Outpatient (AMB) | payer OTHER, SELFPAY ==
--- NOTE | 2024-12-12 14:33 | A.OFFVIS_ITS ---
Intake Visit Reasons: 6 month fu Allergies levonorgestrel-ethinyl estradiol (From Seasonale) Adverse Reaction (Mild, Verified 12/12/24 14:38) COLD SYMPTOMS Medication List - Last Reconciled 12/12/24 by Tabatha Cesar CNP amlodipine 5 mg PO DAILY bupropion HCl XL 300 mg PO QAM lamotrigine 100 mg PO BID lithium carbonate ER 450 mg PO DAILY lorazepam 0.5 mg PO BID PRN 30 days quetiapine (Seroquel) 25 mg PO BEDTIME HPI Comments Details: 49-year-old woman with multiple psychiatric diagnoses including bipolar disorder, PTSD, and anxiety, who was concerned about her memory and disease associated with amyloid and tau that she read bout. She has periods where she loses train of thought and feels memory is not sharp. Her long-term boyfriend does not feel that she has any cognitive problems. In school, she received B?s and C?s for grades. She was held back in the third grade. It is unclear if she had attention deficit disorder. She has been disabled because of her psychiatric illnesses. Her mother was diagnosed with Alzheimer?s disease at age 61. Her younger brother of about 2.5 years did not have any memory issues. Brain MRI on 02/23/2024 showed mild atrophy, slightly out of proportion for age. She was doing okay. Memory was about the same. She lives with her long-term boyfriend and he tells her that her memory is fine. She says she talks in circles and loses train of thought, but he is able to understand her. She went to [employer] the other day and accidentally asked for fajitas instead of quesadilla, which is what she meant to order and this upset her. She is functioning okay at home, doing the grocery shopping, cooking, and cleaning. She goes to [employer] class once a week which she enjoys. Sleep was okay. She was taking quetiapine at bedtime, but was unsure of dose. Mood was okay, but is ?sad? at times and ?emotional in general.? She was working with therapist monthly and also psychiatrist. [facility] Medical History (Updated 12/12/24 @ 14:36 by Tabatha Cesar CNP) Anxiety PTSD (post-traumatic stress disorder) Bipolar disorder MCI (mild cognitive impairment) Eczema HTN (hypertension) Social History Household Members: Significant Other Comment: IUD 7years Patient Tobacco Use Status: Never used Tobacco Review of Systems Const Denies chills, Denies daytime sleepiness, Reports difficulty sleeping, Denies fatigue, Denies fever(s), Denies frequent falls, Denies headache(s), Denies increased appetite, Denies poor appetite, Denies snoring, Denies weakness, Denies weight gain and Denies weight loss Eyes Denies loss of vision ENT Denies vertigo, Reports dizziness, Denies headache(s) and Denies neck pain Card Denies chest pain at rest, Denies chest pain with activity, Denies syncope, Denies leg edema, Denies palpitations, Denies dyspnea and Denies dyspnea on exertion Resp Denies cough, Denies dyspnea, Denies dyspnea on exertion and Denies snoring GI Denies abdominal pain, Denies constipation, Denies heartburn, Denies diarrhea and Denies nausea Denies urinary frequency, Denies urinary incontinence and Denies urinary urgency Musc Denies abnormal gait, Denies back pain, Denies myalgias, Denies arthralgias, Denies neck pain, Denies numbness and Denies tingling Neuro Denies abnormal gait, Denies vertigo, Reports dizziness, Denies syncope, Denies frequent falls, Denies headache(s), Denies lack of coordination, Denies loss of vision, Reports memory loss, Denies numbness, Denies Other visual disturbances, Denies restless legs, Denies seizure-like activity, Denies tingling, Denies paresthesias, Denies tremor(s) and Denies weakness Psych Reports anxiety, Reports depression, Denies auditory hallucinations, Reports memory loss and Denies visual hallucinations Endo Denies fatigue and Denies palpitations Physical Exam Const Other: General Appearance:? normal, in no acute distress. Heart:? S1, S2 normal, no murmurs. Lungs:? clear anteriorly and posteriorly. Musculoskeletal:? normal. Extremities:? no edema. Psych:? alert, oriented, cognitive function intact, cooperative with exam. Neuro Other: Abnormal Neurological Findings:?MMSE Mental Status: alert, as below. Tearful at times. Cranial Nerves: Pupils are equal, round, and reactive to light. External ocular muscles are intact. Visual mock are full, no ptosis. Face is symmetrical, no facial weakness or droop. Facial sensations are normal. Tongue protrudes in midline. Palate elevates symmetrically. Shoulder shrugging is normal Motor Examination: Normal muscle tone, bulk and strength. No atrophy or fasciculations. No drift of the extended upper extremities. DTR 2+. Plantars are flexor. Straight Leg Raisin degrees. Sensory Exam: Normal light touch, temperature, pinprick, vibration, and joint- position sensations. Rhomberg sign is absent. Coordination: No ataxia. No titubation. Yblvij-pz-vwkq, xinw-iwak-tdhx test, and rapid alternating movements were normal. Gait Exam: Within normal limits. Cerebellar Signs: Mbylxy-bk-zsip and hbfv-oy-gjko is normal. No dysdiadochokinesia. Extrapyramidal System: No tremor, rigidity with normal facial expressions. No bradykinesia. No bradyphrenia. Normal arm swing and posture. No propulsion or retropulsion. Speech: Normal. No dysphasia or dysarthria. MMSE Level of Consciousness: Alert. Orientation: Knows correct year, month, day and season. Does not know date. Knows correct city, county and state. Knows correct location and floor. Registration: Able to register 3 objects. Attention: Serial 7's performed accurately to 86 with difficulty Recall: Able to recall 1 out of 3 objects. Language: Normal spontaneous speech, fluency, repetition, naming, comprehension, reading, and writing. Total Score: 23/30. Results Reviewed Results Reviewed: 06/01/24 EEG- Mild diffuse slowing and some theta bursts c/w mild diffuse cerebral dysfunction. 02/23/24 MRI brain shows mild atrophy greater than expected for age, otherwise unremarkable. Labs normal. Assessment & Plan Assessment & Plan (1) MCI (mild cognitive impairment): Code(s): G31.84 - Mild cognitive impairment of uncertain or unknown etiology Category: Medical Plan: She was not interested in trying medication (such as donepezil) at this time. Continue current treatment, continue working with therapist and psychiatrist. Stay physically and socially active. Follow up as needed. Coding Level of Care Code Est Pt Level 3 (08592) Diagnoses MCI (mild cognitive impairment) G31.84
--- OUTSIDE RECORDS SUMMARY | 2024-12-12 15:42 | XMS_ITS | Encounter Summary ---
Author Organization [facility] [facility] Address [address] [place] [address] Care Team Providers Care Briquette Machine Operator Helper Name Role Phone Unavailable Primary Care Provider Unavailabl e Encounter Details Date Type Department Care Team (Latest Contact Info) Description 11/30/[address] [facility] CONVERSIONS Dental, Provider, DDS Social History Tobacco Use Types Packs/Day Years Used Date Smoking Tobacco: Never Assessed Comments Unknown Sex and Gender Information Value Date Recorded Sex Assigned at Female 03/30/2022 10:24 AM EDT Legal Sex Female 10:24 AM EDT Gender Identity Female 03/30/2022 10:24 AM EDT Sexual Orientation Don't know 03/30/2022 10 :24 AM EDT documented as of this encounter Plan of Treatment Upcoming Encounters Date Type Department Care Team (Late st Contact Info) Description 12/19/2024 3:00 PM EDT Office Visit [facility] ADULT DENTAL [address] [place] [address] Mandy Ramos [address] [place] [address] documented as of this encounter Visit Diagnoses Not on filedocumented in this encounter
== END 2024-12-12 17:01 | disposition home or self-care (01) ==
LOC: HO.HSM 14:24
PROVIDERS: PCP Internal Medicine; Referring Provider Internal Medicine; Visit Provider Registered Nurse
DX: G31.84 Mild cognitive impairment of uncertain or unknown etiology (principal)
CPT/HCPCS: 99213

== ENCOUNTER → 2024-12-12 14:24 | Outpatient (BNVA) | payer OTHER, SELFPAY | PROVIDERS: PCP Internal Medicine; Referring Provider Internal Medicine; Visit Provider Registered Nurse | DX: G31.84 Mild cognitive impairment of uncertain or unknown etiology (principal); F41.9 Anxiety disorder, unspecified; F31.89 Other bipolar disorder; F43.10 Post-traumatic stress disorder, unspecified | CPT/HCPCS: 99212 ==

== ENCOUNTER 2025-05-22 13:33 | Outpatient (AMB) | payer OTHER, SELFPAY ==
[2025-05-22 14:03] VITALS: BP 130/90; PULSE 101; O2SAT 99; BMI 27.7
--- NOTE | 2025-05-22 14:03 | AM.OFFWIN_ITS ---
Intake Vital Signs 05/22/25 14:03 Height 4 ft 11 in Weight 137 lb BMI 27.7 BP 130/90 H Blood Pressure Location Lt brachial Position Sitting Pulse 101 H Pulse Source Pulse Oximeter Pulse Oximetry (%) 99 Oxygen Delivery Method Room Air Intake Visit Reasons: EP Cut thumb with terminal carman Intake Note: Patient presents c/o cut on left thumb from terminal carman at home last night. Flap is still attached. Patient Tobacco Use Status: Never used Tobacco Allergies Seasonal Allergies Allergy (Verified 05/22/25 14:07) sinusitis levonorgestrel-ethinyl estradiol (From Seasonale) Adverse Reaction (Mild, Verified 05/22/25 14:07) COLD SYMPTOMS HPI HPI Comments History of Present Illness Details History of Present Illness - The patient is a 50 year old female pr esenting for evaluation of a left thumb injury. - She sustained the injury the previous night while peeling clean vegetables. - The wound was initially cleaned with h ydrogen peroxide. - She denies being on any blood thinners . [facility] Medical History (Updated 05/22/25 @ 14:38 by Brandy Oliver PA-C) Anxiety PTSD (post-traumatic stress disorder) Bipolar disorder MCI (mild cognitive impairment) Eczema HTN (hypertension) Social History Household Members: Significant Other Comment: IUD 7years Patient Tobacco Use Status: Never used Tobacco Review of Systems Narrative Review of Systems - Integumentary: Reports pain at the site of the left thumb laceration. - Denies drainage, warmth, or surrounding redness. All systems reviewed and are unremarkable except as noted in HPI Physical Exam Exam Exam: Physical Exam General: Cooperative, healthy appearing, comfortable, no acute distress and well developed Orientation: Patient oriented x3 Limitations: No limitations Head: Normal to inspection Ears: Hearing grossly normal bilaterally Nose: Normal External nose present Face and sinus: Normal facial exam Eyes: Appearance normal, both eyes and all related structures Neck: Normal visual inspection and Yes full ROM Respiratory: Normal respiratory effort and able to speak in complete sentences. Skin: No rashes or lesions noted Neuro: Patient oriented x3 Extremities: Normal to inspection except for the left thumb DIP with 0.5cm flap of skin on the joint, no drainage, no erythema, no ecchymosis, flap is unable to be lifted, appears to be healing. Vital Signs: Last Vital Signs Pulse 101 H 05/22/25 14:03 BP 130/90 H 05/22/25 14:03 Pulse Ox 99 05/22/25 14:03 Oxygen Delivery Method Room Air 05/22/25 14:03 BMI result Body Mass Index 27.7 Office Procedures AMB Laceration Repair Details: area cleaned and irrigated with sterile saline and betadine. Skin-tac applied with 2 steri-strips and a bandaid. Laceration repair performed by: Brandy Oliver Explained risks and benefits to parent: Yes Informed consent given: Yes Consent signed: No Location: left thumb DIP Length: 0.5cm Sedation: No Irrigation: saline Preparation: betadine Wound exploration: none Deep closure: No Skin closure: other (2 steri-strips) Topical treatment: dry Tetanus toxoid ordered: No Patient tolerated procedure: [place]: [place] [id number] Repair <2.5cm Procedure code (CPT) selection complete Assessment & Plan Assessment & Plan (1) Superficial injury of left thumb: Code(s): S60.932A - Unspecified superficial injury of left thumb, initial encounter Qualifiers: Encounter type: initial encounter Qualified Code(s): S60.932A - Unspec ified superficial injury of left thumb, initial encounter Plan: Patient was informed and verbally consented to the use of an ambient scribe for clinic note documentation during this visit. Open Wound Of Left Thumb - The patient presents with a flap laceration on her left thumb, sustained the previous night. - Given the time since injury and early signs of healing, the wound is not a candidate for suture closure. - The location over a joint may delay healing due to movement. - The wound was cleansed with Betadine. - Steri-Strips were applied to keep the skin flap down though it was not able to be lifted, appears to be healing well. - The patient was advised to discontinue the use of hydrogen peroxide, as it can impair healing, and instead apply Bacitracin ointment. - She was instructed to keep the wound clean and dry, leaving it open to air as much as possible and only covering it with a bandage when in public. - The patient was educated that if the skin flap necroses, she should allow it to fall off naturally rather than cutting it to prevent infection. - She was advised to return to the clinic for any signs of infection, such as purulent drainage, increased redness, or warmth, at which point an antibiotic would be prescribed. - No indication for Tdap, XR or Ortho referral today. - Activity modification was recommended, advising her to avoid cutting duties/soaking hand for a few days. Orders: Orders AMB Laceration Repair Today S61.019A - Laceration without foreign body of unspecified thumb without damage to nail, initial encounter Coding Level of Care Code New Pt Level 3 (77961) Diagnoses Superficial injury of left thumb, initial encounter S60.932A Encounter type: initial encounter CPT Codes Office Procedure - Laceration Repair 1: [id number] Repair <2.5cm ([id number])
--- OUTSIDE RECORDS SUMMARY | 2025-05-22 14:41 | XMS_ITS | Encounter Summary ---
Author Organization [employer] [facility] Address [address] [place] [address] Care Team Providers Care Stake Setter Name Role Phone Unavailable Primary Care Provider Unavailabl e Reason for Visit * Reason Comments Appointment Glenna Noble [birth year] Patient called in stating that she thought that pa was going to be sent to her insurance [employer] for approval for crown for RCT patient was last seen for RCT on 01/19/22 but didn't continue treatment because she couldn't pay for crown . She is asking for pa to be sent out to see if insurance will approval Encounter Details Date Type Department Care Team ([facility] st Contact Info) Description 08/03/2022 Telephone [facility] ADULT DENTAL [address] [place] [address] De Mooney, DDS [address] [place] [address] Appointment (Glenna Noble 1975 Patient called in stating that she thought that pa was going to be sent to her insurance [employer] for approval for crown for RCT patient was last seen for RCT on 01/19/22 but didn't continue treatment because she couldn't pay for crown . She is asking for pa to be sent out to see if insurance will approval ) Social History Tobacco Use Types Packs/Day Years Used Date Smoking Tobacco: Never Smokeless Tobacco: Never Alcohol Use Standard Drinks/Week Comments Yes 0 (1 standard drink = 0.6 oz pur e alcohol) Comments Unknown Sex and Gender Information Value Date Recorded Sex Assigned at Female 03/30/2022 10:24 AM EDT Legal Sex Female 10:24 AM EDT Gender Identity Female 03/30/2022 10:24 AM EDT Sexual Orientation Don't know 03/30/2022 10 :24 AM EDT documented as of this encounter Miscellaneous Notes * Telephone Encounter - Sherry Baptiste - 08/04/2022 11:07 AM EST Glenna VILLANUEVA 1975 Patient called in stating that she thought that pa was going to be sent to her insurance [employer] for approval for crown for RCT patient was last seen for RCT on 01/19/22 but didn't continue treatment because she couldn't pay for crown She is asking for pa keyona sent out to see if insurance will approval * Telephone Encounter - Devi Amaya - 08/03/2022 3:01 PM EST Glenna VILLANUEVA 1975 Patient called in stating that she thought that pa was going to be sent to her insurance [employer] for approval for crown for RCT patient was last seen for RCT on 01/19/22 but didn't continue treatment because she couldn't pay for crown She is asking for pa keyona sent out to see if insurance will approval documented in this encounter Plan of Treatment Not on file documented as of this encounter Visit Diagnoses Not on filedocumented in this encounter
--- OUTSIDE RECORDS SUMMARY | 2025-05-22 14:41 | XMS_ITS | Encounter Summary ---
Author Organization [employer] [facility] Address [address] [place] [address] Care Team Providers Care Line Director Name Role Phone Unavailable Primary Care Provider Unavailabl e Encounter Details Date Type Department Care Team (Late st Contact Info) Description 08/18/2022 Telephone [facility] ADULT DENTAL [address] [place], [place] [phone] Satya Quinteros DDS [address] [place], [place] [phone] Social History Tobacco Use Types Packs/Day Years [...] as of this encounter Plan of Treatment Not on file documented as of this encounter Visit Diagnoses Not on filedocumented in this encounter
--- OUTSIDE RECORDS SUMMARY | 2025-05-22 14:41 | XMS_ITS | Encounter Summary ---
Author Organization [facility] [employer] [facility] Address [address] [place] [address] Care Team Providers Care Business Lawyer Name Role Phone Unavailable Primary Care Provider Unavailabl e Encounter Details Date Type Department Care Team (Latest Contact Info) Description 11/30/2018 Abstract [facility] CONVERSIONS Dental, Provider, DDS Social History Tobacco [...]
--- OUTSIDE RECORDS SUMMARY | 2025-05-22 14:41 | XMS_ITS | Encounter Summary ---
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 Name Role Phone Unavailable Primary Care Provider Unavailabl e Encounter Details Date Type Department Care Team ([facility] st Contact Info) Description 05/18/2022 Abstract [facility] [address] [place] [address] De Mooney DDS [address] [place] [address] Social History Tobacco Use Types Packs/Day Years Used Date Smoking Tobacco: Never Assessed Comments Unknown Sex and Gender Information Value Date Recorded Sex Assigned at Female 03/30/2022 10:24 AM EDT Legal Sex Female 10:24 AM EDT Gender Identity Female 03/30/2022 10:24 AM EDT Sexual Orientation Don't know 03/30/2022 10 :24 AM EDT COVID-19 Exposure Response Date Recorded In the last 10 days, have yo u been in contact with someone who was confirmed or suspected to have Coronavirus/COVID-19? No / Unsure 05/04/2022 10:20 AM EST documented as of this encounter Plan of Treatment Not on file documented as of this encounter Procedures Procedure Name Priority Date/Time Associated Diagnosis Comments 3 CROWN - PORCELAIN/CERAMIC Routine 05/18/2022 12:00 AM EST 29 DOL COMPOSITE FILLING Routine 12:00 AM EST 30 MOB COMPOSITE FILLING Routine 12:00 AM EST 7 ML COMPOSITE FILLING Routine 12:00 AM EST 1 COMPOSITE FILLING Routine 05/18/20 12:00 AM EST 32 O AMALGAM FILLING Routine 05/18/2022 12:00 AM EST 31 O AMALGAM FILLING Routine 05/18/2022 12:00 AM EST 20 O AMALGAM FILLING Routine 05/18/2022 12:00 AM EST 19 O AMALGAM FILLING Routine 05/18/2022 12:00 AM EST 18 O AMALGAM FILLING Routine 05/18/2022 12:00 AM EST 15 O AMALGAM FILLING Routine 05/18/2022 12:00 AM EST 14 M AMALGAM FILLING Routine 05/18/2022 12:00 AM EST 14 D AMALGAM FILLING Routine 05/18/2022 12:00 AM EST 13 DO AMALGAM FILLING Routine 05/18/2022 12:00 AM EST 4 DO AMALGAM FILLING Routine 05/18/2022 12:00 AM EST 21 EXTRACTION Routine 05/18/2022 12:00 AM EST 12 EXTRACTION Routine 05/18/2022 12:00 AM EST 28 EXTRACTION Routine 05/18/2022 12:00 AM EST 5 EXTRACTION Routine 05/18/2022 12:00 AM EST 10 FIXED PARTIAL DENTURE - ABUTMENT CROWN Routine 05/18/2022 12:00 AM EST 8 FIXED PARTIAL DENTURE - ABUTMENT CROWN Routine 05/18/2022 12:00 AM EST 9 FIXED PARTIAL DENTURE - PONTIC Routine 05/18/2022 12:00 AM EST 10 ROOT CANAL Routine 05/18/2022 12:00 AM EST 8 ROOT CANAL Routine 05/18/2022 12:00 AM EST documented in this encounter Visit Diagnoses Not on filedocumented in this encounter
--- OUTSIDE RECORDS SUMMARY | 2025-05-22 14:41 | XMS_ITS | Clinical Summary ---
Author Organization [facility] Address [address] [place] [address] Care Team Providers Care Direct Care Worker Name Role Phone Unavailable Primary Care Provider Unavailabl e Allergies No known active allergies Medications amLODIPine (Norvasc) 1 mg/mL suspension oral suspension Take 5 tablets by mouth at bed time. Active amLODIPine (Norvasc) 5 MG tablet Take 5 mg by mouth in the morning. 2 Active risperiDONE (RisperDAL) 1 MG tablet Take 1 tablet by mouth every 12 (twelve) hours. Active LORazepam (Ativan) 1 MG tablet Take 1 tablet by mouth every 8 (eight) hours. Active buPROPion SR (Wellbutrin SR) 100 MG 12 hr tablet Take 1 tablet by mouth every 12 (twelve) hours. Active amoxicillin (Amoxil) 500 MG capsule Take 1 capsule (500 mg) by mouth every 8 (eight) hours. 30 capsule 4 Active Additional Information Patient not taking.Reported on 09/22/2023 Sodium Fluoride (PreviDent 5000 Booster Plus) 1.1 % paste Apply 1 Application. to teeth 2 times daily. 112 g 3 4 Active Additional Information Patient not taking.Reason: Pt no longer taking, Reported on 12/19/2024 lamoTRIgine (LaMICtal) 100 MG tablet Take 1 tablet by mouth 2 times daily. Active lithium ER (Lithobid) 300 MG 12 hr tablet Take 300 mg by mouth at bedtime. Active QUEtiapine (SEROquel) 25 MG tablet Take 25 mg by mouth if needed at bedtime. Active Active Problems Problem Noted Date Diagnosed Date Staining of multiple teeth 12/19/2024 Dental calculus 12/19/2024 Crowded teeth 12/19/2024 Missing teeth, acquired 12/19/2024 Dental plaque 11/06/2022 Localized gingival recession 11/06/2022 Social History Tobacco Use Types Packs/Day Years Used Date Smoking Tobacco: Never Smokeless Tobacco: Never Tobacco Cessation:Counseling Given: Not Answered Alcohol Use Standard Drinks/Week Comments Yes 0 (1 standard drink = 0.6 oz pur e alcohol) Comments Unknown Sex and Gender Information Value Date Recorded Sex Assigned at Female 03/30/2022 10:24 AM EDT Legal Sex Female 10:24 AM EDT Gender Identity Female 03/30/2022 10:24 AM EDT Sexual Orientation Don't know 03/30/2022 10 :24 AM EDT Last Filed Vital Signs Vital Sign Reading Time Taken Comments Blood Pressure 126/70 12/19/2024 2:54 PM EDT Pulse 74 10/14/2023 3:04 PM EDT Temperature - - Respiratory Rate - - Oxygen Saturation - - Inhaled Oxygen Concentration - - Weight - - Height - - Body Mass Index - - Plan of Treatment Health Maintenance Due Date Last Done Comments CT Colonography 1974 Colonoscopy 1974 Colorectal Cancer Screening 1974 Depression Screening 1974 FIT DNA/Cologuard 1974 FIT 1974 FOBT 1974 HIV Screening 1974 Lipid Panel 1974 SDOH Screening 1974 Sigmoidoscopy 1974 Disability Screening 1974 Alcohol/Substance Use Screening 1986 Family Planning (PISQ) 1989 Hepatitis C Screening 02/28/1992 Pap Smear 1995 Cervical Cancer Screening 02/28/2004 HPV/Cotest 02/28/2004 Hepatitis B Vaccines (3 of 3 - 19+ 3-dose series) 05/11/2007 03/16/2007, 09/13/2006, 09/11/2006 Mammogram 2014 Pneumococcal Vaccine: 50+ Years (1 of 1 - PCV) 02/28/2024 Zoster Vaccines (1 of 2) 02/28/2024 DTaP/Tdap/Td Vaccines (2 - Td or Tdap) 06/25/2024 06/25/2014, 09/11/2005 Dental X-Ray: Full Mouth 12/16/2024 12/15/2021 COVID-19 Vaccine ( season) 2025 06/23/2021, 10/17/2020, 09/26/2020, Additional history exists Influenza Vaccine (#1) 2025 , 04/07/2021, 03/19/2020, Additional history exists Dental Oral Exam 06/22/2025 12/19/2024, 07/23/2023 Dental Prophylaxis 06/22/2025 12/19/2024, 0 10/14/2023, 11/06/2022 Tobacco Screening 12/19/2025 12/19/2024 Dental X-Ray: Bitewings 12/20/2025 12/19/2024, 07/23 RSV Patients and Patients Aged 60 years or older (1 - 1-dose 75+ series) 2049 HIB Vaccines Aged Out No longer eligi ble based on patient's age to complete this topic HPV Vaccines Aged Out No longer eligi ble based on patient's age to complete this topic Hepatitis A Vaccines Aged Out No long er eligible based on patient's age to complete this topic IPV Vaccines Aged Out No longer eligi ble based on patient's age to complete this topic Meningococcal B Vaccine Aged Out No l onger eligible based on patient's age to complete this topic Meningococcal Vaccine Aged Out No megan anya eligible based on patient's age to complete this topic RSV under 20 months Aged Out No longe r eligible based on patient's age to complete this topic Rotavirus Vaccines Aged Out No longer eligible based on patient's age to complete this topic Procedures Procedure Name Priority Date/Time Associated Diagnosis Comments PROPHYLAXIS - ADULT Routine 12/19/2024 3 :00 PM EDT Staining of multiple teeth Dental calculus Crowded teeth Missing teeth, acquired BITEWINGS - 4 RADIOGRAPHIC IMAGES Routine 12/19/2024 3:00 PM EDT Staining of multiple teeth Dental calculus Crowded teeth Missing teeth, acquired PERIODIC ORAL EVALUATION - ESTABLISHED PATIENT Routine 12/19/2024 3:00 PM EDT from Last 3 Months or Most Recently Relevant to Health Maintenance Insurance [facility]
== END 2025-05-22 14:56 | disposition home or self-care (01) ==
PROVIDERS: PCP Internal Medicine; Visit Provider Physician Assistant
DX: S60.932A Unspecified superficial injury of left thumb, initial encounter (principal)

== ENCOUNTER → 2025-05-22 13:33 | Outpatient (BNVA) | payer OTHER, SELFPAY | PROVIDERS: PCP Internal Medicine; Visit Provider Physician Assistant | DX: S60.932A Unspecified superficial injury of left thumb, initial encounter (principal); S61.019A Laceration without foreign body of unspecified thumb without damage to nail, initial encounter | CPT/HCPCS: 12001; 99202 ==